=== PATIENT | female | born 1990 | race Caucasian/White ===

== ENCOUNTER 2019-07-23 17:04 | Outpatient (CLI) | payer MEDICAID, SELFPAY ==
[2019-07-23 19:11] LABS: Free T4 Free Thyroxine 3.11 ng/dL (0.82-1.77); T3 Free 9.9 PG/ML (2.0-4.4)
== END 2019-07-23 17:05 | disposition home or self-care (01) ==
LOC: LAB 17:09
PROVIDERS: Family Provider Registered Nurse; PCP Registered Nurse; Visit Provider Registered Nurse
DX: E05.00 Thyrotoxicosis with diffuse goiter without thyrotoxic crisis or storm (principal)
CPT/HCPCS: 84439; 84481